=== PATIENT | male | born 1975 | race Caucasian/White ===

== ENCOUNTER 2017-11-20 05:53 | Emergency (ER) | payer SELFPAY, OTHER ==
[2017-11-20] MEDS: IBUPROFEN 600 MG TAB PO (06:36)
== END 2017-11-20 07:29 | disposition home or self-care (01) ==
LOC: FTE 05:53
DX: J06.9 Acute upper respiratory infection, unspecified (principal); R07.9 Chest pain, unspecified
CPT/HCPCS: 71045; 93005; 99284-25